=== PATIENT | female | born 1960 | race Caucasian/White ===

== ENCOUNTER 2017-09-09 09:39 | Emergency (ER) | payer MEDICAID ==
[2017-09-09] MEDS: DIPHTH/TET/ACEL PERTUSS (ADULT) 0.5 ML VIAL IM* (10:09)
== END 2017-09-09 10:54 | disposition home or self-care (01) ==
LOC: FTE 09:39
DX: S80.812A Abrasion, left lower leg, initial encounter (principal); W54.8XXA Other contact with dog, initial encounter; Y92.9 Unspecified place or not applicable; Z23 Encounter for immunization
CPT/HCPCS: 90471; 90715; 99283-25